=== PATIENT | male | born 1950 | race Native Hawaiian/Other Pacific Islander ===

== ENCOUNTER 2018-05-19 18:00 | Observation (INO) | payer OTHER ==
[~2018-05-19] VITALS: Ht 180.3 cm; Wt 89.5 kg
[2018-05-19 19:35] LABS: PLATELET COUNT 286 K/uL (142-355); POTASSIUM 3.9 mmol/L (3.6-5.2); SODIUM 140 mmol/L (136-145)
[2018-05-20] MEDS ORDERED: LIPITOR80 MG PO (03:56)
[2018-05-20] MEDS ORDERED: TRAZ50TA36 PO (03:57)
[2018-05-20] MEDS ORDERED: FISH OIL PO (03:58)
[2018-05-20] MEDS ORDERED: MULTI VITAMIN1 TAB PO (03:58)
[2018-05-20] MEDS ORDERED: CLOP75TA2 PO (03:59)
[2018-05-20] MEDS ORDERED: PANTOPRAZOLE 40MG TA PO (04:00)
[2018-05-20] MEDS ORDERED: METO50TA63 PO (04:00)
[2018-05-20] MEDS ORDERED: PERCOCET1 TA3 PO (04:02)
[2018-05-20 05:23] VITALS: BP 153/90; TEMP 97.5; Ht 180.3 cm; Wt 89.5 kg
[2018-05-20 07:00] VITALS: BP 119/73; TEMP 97.6
[2018-05-20 12:00] VITALS: BP 134/76; TEMP 98.1
[2018-05-20 16:00] VITALS: BP 148/81; TEMP 98.1
[2018-05-20 20:00] VITALS: BP 129/75; TEMP 98.5
[2018-05-21] VITALS: BP 113/72; TEMP 98.1
[2018-05-21 03:47] VITALS: BP 137/77; TEMP 97.6
[2018-05-21 08:00] VITALS: BP 130/87; TEMP 97.7
[2018-05-21 10:58] LABS: PLATELET COUNT 228 K/uL (142-355)
[2018-05-21 11:23] LABS: POTASSIUM 3.5 mmol/L (3.6-5.2)
[2018-05-21 12:00] VITALS: BP 145/75; TEMP 98.1
== END 2018-05-21 15:40 | disposition home or self-care (01) ==
LOC: MED/SURG 18:00
PROVIDERS: ADMIT Family Medicine
DX: E86.0 Dehydration (principal); R10.9 Unspecified abdominal pain; I10 Essential (primary) hypertension; I71.2 Thoracic aortic aneurysm, without rupture; N40.0 Benign prostatic hyperplasia without lower urinary tract symptoms; I25.10 Atherosclerotic heart disease of native coronary artery without angina pectoris; R10.31 Right lower quadrant pain; R10.32 Left lower quadrant pain
CPT/HCPCS: 36415; 80053; 81000; 82550; 83605; 83874; 84100; 84153; 84443; 84484; 85027; 85379; 85610; 87015; 87040; 87045; 87324; 87328; 87329; 87449; 87899; 93005; 96365; 96366; 96372; 99220; G0378; G0379; J1650; J2175; J2405; J2543; J3490